=== PATIENT | female | born 1945 | race Caucasian/White ===

== ENCOUNTER 2016-12-05 15:29 | Emergency (ER) | payer OTHER ==
[2016-12-05 16:49] LABS: microscopic required? NO
[2016-12-05 17:07] LABS: BASOPHIL % 0.4 % (0-2); PLATELET COUNT 243 x10^3mcL (130-400); RED CELL DISTRIBUTION WIDTH 13.8 % (11.5-14.5)
[2016-12-05 17:12] LABS: urine erythrocyte NEGATIVE (NEGATIVE)
[2016-12-05 17:22] LABS: CALCIUM 8.6 mg/dL (8.5-10.1); CARBON DIOXIDE 27.8 mmol/L (21-32); CHLORIDE SERUM 103 mmol/L (98-107); CREATININE SERUM 0.7 mg/dL (0.6-1.0); GLUCOSE SERUM 93 mg/dL (74-106); POTASSIUM SERUM 3.8 mmol/L (3.5-5.1); SODIUM SERUM 141 mmol/L (136-145)
[2016-12-05 17:26] LABS: ALBUMIN 3.5 g/dL (3.4-5.0); ALKALINE PHOSPHATASE 80 U/L (46-116); ALT/SGPT 31 U/L (14-59); AST/SGOT 14 U/L (15-37); BILIRUBIN TOTAL 0.3 mg/dL (0.20-1.00)
[2016-12-05 17:55] VITALS: BP 117/74
== END 2016-12-05 18:42 | disposition home or self-care (01) ==
LOC: ED 15:29
PROVIDERS: Emergency Medicine
DX: R10.2 Pelvic and perineal pain (principal); E11.9 Type 2 diabetes mellitus without complications
CPT/HCPCS: 36415

== ENCOUNTER 2017-02-14 21:41 | Inpatient (IN) | payer OTHER ==
[~2017-02-14] VITALS: Ht 152.4 cm; Wt 67.2 kg
[2017-02-14 22:42] LABS: BASOPHIL % 0.5 % (0-2); PLATELET COUNT 230 x10^3mcL (130-400); RED CELL DISTRIBUTION WIDTH 14.2 % (11.5-14.5)
[2017-02-14 22:51] LABS: CALCIUM 8.8 mg/dL (8.5-10.1); CARBON DIOXIDE 28.7 mmol/L (21-32); CHLORIDE SERUM 102 mmol/L (98-107); CREATININE SERUM 0.5 mg/dL (0.6-1.0); GLUCOSE SERUM 128 mg/dL (74-106); POTASSIUM SERUM 3.8 mmol/L (3.5-5.1); SODIUM SERUM 137 mmol/L (136-145)
[2017-02-14 22:56] LABS: ALBUMIN 3.4 g/dL (3.4-5.0); ALKALINE PHOSPHATASE 76 U/L (46-116); ALT/SGPT 21 U/L (14-59); AST/SGOT 11 U/L (15-37); BILIRUBIN TOTAL 0.3 mg/dL (0.20-1.00)
[2017-02-14 23:35] LABS: CK-MB 0.6 ng/mL (0-3.6)
[2017-02-15 00:12] LABS: UA SPECIFIC GRAVITY <=1.005 (1.005-1.035); microscopic required? YES; urine erythrocyte NEGATIVE (NEGATIVE)
[2017-02-15 02:48] VITALS: BP 111/64
[2017-02-15] MEDS ORDERED: LIPITOR40 MG PO (04:17)
[2017-02-15] MEDS ORDERED: VITAMIN D32000 I2 PO (04:18)
[2017-02-15] MEDS ORDERED: BENAZEPRIL HCL/1 TAB PO (04:20)
[2017-02-15] MEDS ORDERED: LEVOTHYROXINE0.1 M2 PO (04:21)
[2017-02-15] MEDS ORDERED: TRAMADOL HCL50 MG PO ×2 (04:22→04:28)
[2017-02-15] MEDS ORDERED: METFORMIN HCL500 MG PO (04:30)
[2017-02-15 06:20] VITALS: BP 103/59
[2017-02-15 06:52] VITALS: Ht 152.4 cm; Wt 67.2 kg
[2017-02-15 09:18] VITALS: BP 113/63
[2017-02-15 10:22] VITALS: BP 113/63
== END 2017-02-15 12:24 | disposition home or self-care (01) | DRG 463 ==
LOC: ED 21:41 → MU 02-15 01:12
PROVIDERS: Emergency Medicine; ADMIT Internal Medicine Pulmonary Disease
DX: N39.0 Urinary tract infection, site not specified (principal); E11.65 Type 2 diabetes mellitus with hyperglycemia; I10 Essential (primary) hypertension; E11.9 Type 2 diabetes mellitus without complications; Z90.710 Acquired absence of both cervix and uterus; E03.9 Hypothyroidism, unspecified; E78.5 Hyperlipidemia, unspecified; E66.9 Obesity, unspecified
CPT/HCPCS: 82962; 83880; J0696; J2405; J7030

== ENCOUNTER 2018-11-03 18:24 | Emergency (ER) | payer OTHER ==
[~2018-11-03] VITALS: Ht 152.4 cm; Wt 73.9 kg
[~2018-11-03 18:24] MED LIST: BENAZEPRIL HCL/1 TAB PO; LEVOTHYROXINE0.1 M2 PO; LIPITOR40 MG PO; METFORMIN HCL500 MG PO; TRAMADOL HCL50 MG PO; VITAMIN D32000 I2 PO
[2018-11-03 18:45] VITALS: Ht 152.4 cm; Wt 73.9 kg
[2018-11-03 20:07] LABS: BASOPHIL % 0.5 % (0-2); PLATELET COUNT 228 x10^3mcL (130-400); RED CELL DISTRIBUTION WIDTH 14.4 % (11.5-14.5)
[2018-11-03 20:18] LABS: CARBON DIOXIDE 29.2 mmol/L (21-32); CHLORIDE SERUM 106 mmol/L (98-107); CREATININE SERUM 0.7 mg/dL (0.6-1.0); GLUCOSE SERUM 106 mg/dL (74-106); POTASSIUM SERUM 4.1 mmol/L (3.5-5.1); SODIUM SERUM 141 mmol/L (136-145)
[2018-11-03 20:23] LABS: ALBUMIN 3.5 g/dL (3.4-5.0); ALKALINE PHOSPHATASE 76 U/L (46-116); ALT/SGPT 33 U/L (14-59); AST/SGOT 13 U/L (15-37); BILIRUBIN TOTAL 0.4 mg/dL (0.20-1.00); TOTAL PROTEIN, SERUM 6.9 g/dL (6.4-8.2)
[2018-11-03 21:57] VITALS: BP 107/33
== END 2018-11-03 21:57 | disposition home or self-care (01) ==
LOC: ED 18:24
PROVIDERS: Emergency Medicine
DX: R10.11 Right upper quadrant pain (principal); R07.89 Other chest pain; I10 Essential (primary) hypertension; E11.9 Type 2 diabetes mellitus without complications; Z90.710 Acquired absence of both cervix and uterus
CPT/HCPCS: J7030; Q0092